=== PATIENT | male | born 1975 | race Caucasian/White ===

== ENCOUNTER 2017-04-10 23:33 | Inpatient (IN) | payer OTHER ==
[~2017-04-10] VITALS: Ht 172.7 cm; Wt 93.5 kg
--- NOTE | ~2017-04-10 | EKG ---
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 : 1975 Requested By: Abi Corbin Order Number: [id number] MD: Morgan Spicer Measurements Intervals [place] Rate: 55 P: 35 [place]: 205 QRS: 14 QRSD: 93 T: 58 QT: 452 QTc: 433 Interpretive Statements Sinus rhythm Borderline prolonged [place] interval Compared to ECG 08/11/2009 22:33:07 No significant changes Electronically Signed On 04-12-2017 9:04:28 CDT by Morgan Spicer [email or web address] <ELECTRONICALLY SIGNED> By: Morgan Spicer MD, [facility] 04/12/17 0904 Morgan Spicer MD, [facility] /EPI
--- NOTE | ~2017-04-10 | H ---
[facility] [address] [place] [address] HISTORY AND PHYSICAL Name: ERASTO CEDENO Room #: 206-P ADM IN M.R.#: [id number] Admission: 04/11/17 Attend Phys: Hasmukh Cespedes MD, Discharge: Date of : 77 Report #: [id number] THIS REPORT FOR: //name// CC: [facility] physician/PCP Hasmukh Cespedes DATE OF SERVICE: 04/11/2017 HISTORY OF PRESENT ILLNESS: The patient is a 41-year-old male who presents with stuttering chest pain for the last couple of days, but then worse last night. He notes some slight decrease in exercise tolerance. He relates he is a poor historian. He had a history of an infarct in 2011 he believes and had 3 stents placed at [facility] at that time, no knowledge aware of how much damage was done. He was in [place] last week he said with a stroke with some slight left foot clumsiness and was sent home with aspirin and lisinopril. He has been essentially noncompliant really due to finances. He is currently working, but does not have benefit yet from his job and was admitted with a troponin of 1.0 and very subtle EKG changes, which did resolve with heparin and Integrilin. His troponin is 6 this morning. He has been essentially pain free overnight. His chest pain was he stated. Although he slept all night, the EKG has no acute changes here, currently this morning's EKG. His sodium was 141. His creatinine is 1.4, probably start some fluids on him, he had normal saline 100 ml an hour, troponin was 1 and then 6.1. His lipids, LDL is 147, his cholesterol is 206, HDL 31. Drug screen was negative. H and H is 14 and 42. He really has not until the last couple of days that he has had any real issues. PAST MEDICAL HISTORY: Positive for the coronary artery disease, tobacco use, hypertension, hypercholesterolemia, noncompliance. PAST SURGICAL HISTORY: No surgeries. ALLERGIES: PENICILLIN. SOCIAL HISTORY: He lives with his fiance, he is currently working, but positive for alcohol and tobacco. FAMILY HISTORY: Negative for premature coronary disease. REVIEW OF SYSTEMS: Essentially negative. PHYSICAL EXAMINATION: GENERAL: Pleasant, alert, he is sleepy, but in no pain or distress. VITAL SIGNS: Blood pressure 120/80, pulse is 68. HEENT: Eyes reveal xanthelasmas. Pharynx is clear. NECK: Shows preserved upstrokes without JVD or bruits. LUNGS: Clear. [address] [address] HISTORY AND PHYSICAL Name: ERASTO CEDENO Room #: [address] [place] [address] IN M.R.#: [id number] Admission: 04/11/17 Attend Phys: Hasmukh Cespedes MD, Discharge: Date of : 77 Report #: [id number] CARDIOVASCULAR: Regular rate and rhythm, S1, S2. ABDOMEN: Soft. No HSM or abdominal bruit. EXTREMITIES: Reveal no edema. Distal pulses were intact. NEUROLOGIC: Nonfocal. SKIN: Warm and dry without xanthoma or ulcer. MUSCULOSKELETAL: No gross joint deformity. He does have fair tattoos on his chest and arm. ASSESSMENT: 1. Non-ST elevation myocardial infarction. 2. Coronary artery disease with history of three stents placed in 2011. 3. Suspected ischemic cardiomyopathy by history, although no documentation of LV, no records obtained. 4. Tobacco abuse. 5. Hypertension. 6. Hypercholesterolemia. RECOMMENDATIONS AND PLAN: He was given heparin, Integrilin and nitro drips. We will maintain these. We will give him an aspirin and 80 mg of Lipitor this morning. We will proceed to the catheterization lab to delineate the anatomy. Risks, benefits and alternatives were discussed with the patient. We will proceed in this fashion. By: 0744 [id number] Hasmukh Cespedes MD, FACC /nt
--- NOTE | ~2017-04-10 | EKG ---
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 : 1975 Requested By: Hasmukh Cespedes Order Number: [id number] MD: Morgan Spicer Measurements Intervals [place] Rate: 59 P: 39 ID: 198 QRS: 14 QRSD: 93 T: 54 QT: 450 QTc: 446 Interpretive Statements Sinus rhythm No significant abnormality Compared to ECG 08/11/2009 22:33:07 No significant changes Electronically Signed On 04-12-2017 9:04:39 CDT by Morgan Spicer [email or web address] <ELECTRONICALLY SIGNED> By: Morgan Spicer MD, [facility] 04/12/17 0904 0657 Morgan Spicer MD, [facility] /EPI
--- NOTE | ~2017-04-10 | EKG ---
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: : 1975 Requested By: bAi Corbin Order Number: [id number] MD: Morgan Spicer Measurements Intervals [place] Rate: 80 P: 50 [place]: 176 QRS: 23 QRSD: 92 T: 28 QT: 369 QTc: 426 Interpretive Statements Sinus rhythm No significant abnormality Compared to ECG 08/11/2009 22:33:07 Inferior injury pattern no longer present Electronically Signed On 04-12-2017 9:03:19 CDT by Morgan Spicer [email or web address] <ELECTRONICALLY SIGNED> By: Morgan Spicer MD, [facility] 04/12/17 0903 0133 2 Morgan Spicer MD, [facility] /EPI
--- NOTE | ~2017-04-10 | EKG ---
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 : 1975 Requested By: Abi Corbin Order Number: [id number] MD: Morgan Spicer Measurements Intervals [place] Rate: 75 P: 67 [place]: 175 QRS: 68 QRSD: 96 T: 83 QT: 343 QTc: 383 Interpretive Statements Sinus rhythm Minimal ST depression, anterolateral leads Compared to ECG 08/11/2009 22:33:07 No significant change was found Electronically Signed On 04-12-2017 9:01:27 CDT by Morgan Spicer [email or web address] <ELECTRONICALLY SIGNED> By: Morgan Spicer MD, [facility] 04/12/17900 2336 233 Morgan Spicer MD, [facility] /EPI
--- NOTE | ~2017-04-10 | CATHLAB ---
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 A PINNACLE 6FR Sheath #[id number] sheath was inserted into the RFA^. Coronary angiography was performed using coronary diagnostic catheters. The right coronary system was accessed and visualized with a JR4 catheter. The left coronary system was accessed and visualized with a JL3.5 catheter. The left ventricle was accessed and visualized with a PIGTAIL catheter. Closure device was deployed with a 6 Fr MYNX. The patient tolerated the procedure well and there were no complications associated with the procedure. There was no hematoma. Intraoperative Conscious Sedation Sedation start time: 10:20 Case end Time: 10:54 Fentanyl 50.0 mcg Versed 1.0 mg Fluoro Time: 7.51 minutes Dose: 761.5 mGy Contrast Type and Amount: Visipaque 200 ml Hemodynamics The aortic pressure is 114/65 mmHg with a mean of 91 mmHg. The left ventricular pressure is 123/26 mmHg with a mean of mmHg. The left ventricular end diastolic pressure is 33 mmHg. PCI Technique [facility] [address] [place] [address] INVASIVE PROCEDURE REPORT Name: ERASTO CEDENO Kalyani Room #: 206-P [facility] IN M.R.#: [id number] Admission: 04/11/17 Attend Phys: Hasmukh Cespedes, Discharge: 04/11/17 Date of : 77 Date of Service: 04/12/17 0930 Report #: [id number] Percutaneous coronary intervention was performed on the mid circumflex artery segment. A 6FR LAUNCHER EBU 3.0 #[id number] Guide Catheter was used to engage the LCA ostium. A Luge Wire .014 x 182CM #[id number] Interventional Guidewire was used to cross the lesion. BALLOON DILATION A Balloon catheter Sprinter OTW 2.75 x 20 #[id number] was inserted and inflated up to 12.00atm for 3seconds. Additional Inflation: 14.00atm for 20seconds. Additional Inflation: 18.00atm for 30seconds. STENT DEPLOYMENT A drug-eluting stent RESOLUTE OTW 3.0 X 12 #[id number] was inserted and inflated up to 14.00atm for 20seconds. Additional Inflation: 18.00atm for 30seconds. Conclusion #1 normal left ventricular size ejection fraction lower limits of normal 50-55% #2 abdominal aortic intact without evidence of aneurysm single renal arteries widely patent iliac system widely patent #3 left main with mild irregularity giving rise to LAD and circumflex #4 subtotal lesion in the proximal circumflex is the culprit this is proximal to a previously placed stent stented segment then his pain and in moderate restenosis in the technically second large OM branch 50-60% nondominant but moderate in size #5 dominant RCA small-caliber eccentric 3040% proximal lesion PDA well preserved #6 successful PTCA stent the proximal circumflex nearly a codominant system subtotal with 0% residual and MIGUELANGEL grade 3 flow placement of a 30 by 12 resolute drug-eluting stent postdilated to 3.2 mm in size. Indications plan will return to the CCU in stable condition. Continue post stent protocol. Minx closure device has been utilized without complication. Will need dual antiplatelet therapy at least 6 months in the further evaluation at that point. This discussion had ensued with the patient prior to stress compliancy. No MRI or dental work for 3 months <ELECTRONICALLY SIGNED> By: Hasmukh Cespedes MD, [facility] 04/12/17929 9 9 Hasmukh Cespedes MD, FACC /INF
--- NOTE | ~2017-04-10 | EKG ---
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 : 1975 Requested By: Hasmukh Cespedes Order Number: [id number] MD: Morgan Spicer Measurements Intervals [place] Rate: 62 P: 48 PA: 191 QRS: 42 QRSD: 118 T: 58 QT: 419 QTc: 426 Interpretive Statements Sinus rhythm No significant abnormality Compared to ECG 08/11/2009 22:33:07 No significant change was found Electronically Signed On 04-13-2017 8:29:20 CDT by Morgan Spicer [email or web address] <ELECTRONICALLY SIGNED> By: Morgan Spicer MD, [facility] 04/13/17 0829 115 115 oMrgan Spicer MD, [facility] /EPI
--- NOTE | ~2017-04-10 | EKG ---
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 : 1975 Requested By: Abi Corbin Order Number: [id number] MD: Morgan Spicer Measurements Intervals [place] Rate: 81 P: 39 [place]: 161 QRS: 35 QRSD: 96 T: 60 QT: 347 QTc: 403 Interpretive Statements Sinus rhythm ST elevation, consider inferior injury Compared to ECG 08/11/2009 22:33:07 ST (T wave) deviation now present Electronically Signed On 04-12-2017 9:01:50 CDT by Morgan Spicer [email or web address] <ELECTRONICALLY SIGNED> By: Morgan Spicer MD, [facility] 04/12/17 0901 002 002 Morgan Spicer MD, [facility] /EPI
--- NOTE | ~2017-04-10 | EKG ---
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
[2017-04-10 23:35] VITALS: BP 139/98
[2017-04-11] VITALS (10 sets, daily range): BP systolic 100–139; BP diastolic 45–86
[2017-04-11 00:01] LABS: ABSOLUTE NEUTROPHILS 7.6 thou/uL (1.4-8.2); BASOPHILS 1.5 % (0.0-2.0); EOSINOPHILS 0.7 % (0.0-3.0); HEMATOCRIT 42.3 % (42.0-52.0); HEMOGLOBIN 14.2 gm/dL (14.0-18.0); LYMPHOCYTES 28.6 % (24.0-44.0); MCH 30.1 pg (26.0-34.0); MCHC 33.5 g/dL (28.0-37.0); MCV 89.8 fL (80.0-100.0); PLATELET COUNT 280 thou/uL (150-400); POLYS 65.2 % (36.0-66.0); RBC 4.71 mil/uL (4.50-6.00); RDW 14.1 % (10.5-14.5); WBC 11.7 thou/uL (4.0-11.0)
[2017-04-11 00:02] LABS: MANUAL DIFF NO
[2017-04-11 00:08] LABS: CALCIUM 8.9 mg/dL (8.5-10.1); CREATININE 1.4 mg/dL (0.7-1.3); POTASSIUM 4.3 mmol/L (3.5-5.1)
[2017-04-11 00:19] LABS: TROPONIN-I 1.07 ng/mL (<0.04-0.07)
[2017-04-11] MEDS ORDERED: ASPIR 8181 MG PO (02:58)
[2017-04-11] MEDS ORDERED: LISINOPRIL10 MG (02:59)
[2017-04-11 03:34] LABS: APTT 27.3 Seconds (24.5-32.8); PROTIME 9.9 Seconds (9.3-11.4)
[2017-04-11 07:19] LABS: CHOLESTEROL 206 mg/dL (<200); CK-MB MASS 52.8 ng/mL (<0.5-3.6); HDL CHOLESTEROL 31 mg/dL (>40); LDL CHOLESTEROL 147 mg/dL (<100); TC:HDL 6.6 Ratio (Not establshd); TRIGLYCERIDE 143 mg/dL (<150); VLDL 29 mg/dL (<40)
[2017-04-11 07:46] LABS: PROTIME 9.8 Seconds (9.3-11.4)
[2017-04-11 12:41] LABS: AMP/METHAMP POSITIVE (Negative); BARBITURATES Negative (Negative); BENZODIAZEPINES Negative (Negative); COCAINE Negative (Negative); METHADONE Negative (Negative); OPIATES POSITIVE (Negative); PCP Negative (Negative); THC POSITIVE (Negative)
== END 2017-04-11 21:30 | disposition home or self-care (01) | DRG 247 ==
LOC: ER 23:33 → 2N 04-11 01:29 → EROBS 04-11 01:29 → 2N 04-11 02:18
PROVIDERS: Emergency Medicine; Internal Medicine Cardiovascular Disease
PROC: B2151ZZ Fluoroscopy of Left Heart using Low Osmolar Contrast (ICD-10-PCS; principal; 2017-04-11)
PROC: 027034Z Dilation of Coronary Artery, One Artery with Drug-eluting Intraluminal Device, Percutaneous Approach (ICD-10-PCS; principal; 2017-04-11)
PROC: 4A023N7 Measurement of Cardiac Sampling and Pressure, Left Heart, Percutaneous Approach (ICD-10-PCS; principal; 2017-04-11)
PROC: B2111ZZ Fluoroscopy of Multiple Coronary Arteries using Low Osmolar Contrast (ICD-10-PCS; principal; 2017-04-11)
DX: I21.4 Non-ST elevation (NSTEMI) myocardial infarction (principal); I10 Essential (primary) hypertension; E78.5 Hyperlipidemia, unspecified; I25.10 Atherosclerotic heart disease of native coronary artery without angina pectoris; F17.210 Nicotine dependence, cigarettes, uncomplicated; E78.00 Pure hypercholesterolemia, unspecified; Z88.0 Allergy status to penicillin; Z86.73 Personal history of transient ischemic attack (TIA), and cerebral infarction without residual deficits; Z95.5 Presence of coronary angioplasty implant and graft
CPT/HCPCS: 10081

== ENCOUNTER 2017-07-09 09:46 | Emergency (ER) | payer OTHER ==
[~2017-07-09] VITALS: Ht 172.7 cm; Wt 90.7 kg
--- NOTE | ~2017-07-09 | EKG ---
[place] [address] [facility] [place] [address] ELECTROCARDIOGRAM REPORT Name: ERASTO CEDENO [id number] Admission: 07/09/17 Attend Phys: Discharge: 07/09/17 Date of : 77 Report #: [id number] THIS REPORT FOR: //name// 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: : 1975 Requested By: Alia Taylor Order Number: [id number] MD: Long Pérez Measurements Intervals [place] Rate: 83 P: 48 [place]: 161 QRS: 31 QRSD: 91 T: 3 QT: 352 QTc: 414 Interpretive Statements Sinus rhythm ST elev, probable normal early repol pattern Compared to ECG 04/23/2017 09:18:27 T-wave abnormality no longer present ST (T wave) deviation still present Electronically Signed On 07-09-2017 15:31:55 CDT by Long Pérez [email or web address] <ELECTRONICALLY SIGNED> By: Long Pérez MD 07/09/17 1531 1004 100 Long Pérez MD /[facility]
[~2017-07-09 09:46] MED LIST: ASPIR 8181 MG PO; COUMADIN 1MG TAB1 M1 PO; LISINOPRIL10 MG
[2017-07-09 10:06] LABS: ABSOLUTE NEUTROPHILS 5.7 thou/uL (1.4-8.2); BASOPHILS 1.1 % (0.0-2.0); HEMATOCRIT 45.8 % (42.0-52.0); HEMOGLOBIN 15.4 gm/dL (14.0-18.0); LYMPHOCYTES 15.9 % (24.0-44.0); MANUAL DIFF NO; MCH 29.5 pg (26.0-34.0); MCHC 33.7 g/dL (28.0-37.0); MCV 87.4 fL (80.0-100.0); MONOCYTES 5.8 % (1.0-8.0); PLATELET COUNT 208 thou/uL (150-400); POLYS 76.2 % (36.0-66.0); RBC 5.23 mil/uL (4.50-6.00); RDW 13.9 % (10.5-14.5); WBC 7.5 thou/uL (4.0-11.0)
[2017-07-09 10:13] LABS: ANION GAP 7 mmol/L (7-16); BUN 10 mg/dL (7-18); CALCIUM 8.9 mg/dL (8.5-10.1); CHLORIDE 105 mmol/L (98-107); CO2 25 mmol/L (21-32); CREATININE 1.1 mg/dL (0.7-1.3); GLUCOSE 144 mg/dL (74-106); POTASSIUM 3.8 mmol/L (3.5-5.1); SODIUM 137 mmol/L (136-145)
[2017-07-09 10:22] LABS: ALBUMIN 3.5 g/dL (3.4-5.0); ALKALINE PHOSPHATASE 150 U/L (46-116); SGOT 16 U/L (15-37); SGPT 24 U/L (30-65); TOTAL BILIRUBIN 0.2 mg/dL (<0.1-1.0); TOTAL PROTEIN 7.3 g/dL (6.4-8.2); TROPONIN-I < 0.04 ng/mL (<0.06)
== END 2017-07-09 14:32 | disposition home or self-care (01) ==
LOC: ER 09:46
PROVIDERS: Physician Assistant
DX: R07.89 Other chest pain (principal); I25.2 Old myocardial infarction; I11.0 Hypertensive heart disease with heart failure; I50.9 Heart failure, unspecified; Z95.5 Presence of coronary angioplasty implant and graft; F10.99 Alcohol use, unspecified with unspecified alcohol-induced disorder; Z87.891 Personal history of nicotine dependence; Z88.0 Allergy status to penicillin